=== PATIENT | female | born 1970 | race Caucasian/White ===

== ENCOUNTER → 2019-02-28 | Outpatient (CLI) | payer BC | LOC: MC.RAD 07:04 | DX: N63.0 Unspecified lump in unspecified breast (principal); N64.89 Other specified disorders of breast | CPT/HCPCS: G0279 ==

== ENCOUNTER → 2019-03-11 | Outpatient (CLI) | payer BC | LOC: MC.RAD 08:00 | DX: N60.01 Solitary cyst of right breast (principal); Z98.82 Breast implant status ==

== ENCOUNTER → 2020-01-28 | Outpatient (CLI) | payer BC | LOC: MC.RAD 07:00 | DX: Z12.31 Encounter for screening mammogram for malignant neoplasm of breast (principal); N63.21 Unspecified lump in the left breast, upper outer quadrant ==

== ENCOUNTER → 2020-02-13 | Outpatient (CLI) | payer BC | LOC: MC.RAD 11:00 | DX: N60.02 Solitary cyst of left breast (principal) ==